=== PATIENT | female | born 1960 | race African-American/Black ===

== ENCOUNTER 2016-07-01 20:40 | Emergency (ER) | payer OTHER ==
[~2016-07-01] VITALS: Ht 162.6 cm; Wt 76.7 kg
[2016-07-01 22:53] VITALS: BP 135/79; TEMP 98.4
== END 2016-07-01 22:57 | disposition home or self-care (01) ==
LOC: ED 20:40
DX: S00.93XA Contusion of unspecified part of head, initial encounter (principal); S16.1XXA Strain of muscle, fascia and tendon at neck level, initial encounter; M47.892 Other spondylosis, cervical region; S00.01XA Abrasion of scalp, initial encounter; W01.198A Fall on same level from slipping, tripping and stumbling with subsequent striking against other object, initial encounter; Y92.098 Other place in other non-institutional residence as the place of occurrence of the external cause
CPT/HCPCS: 99283

== ENCOUNTER 2023-06-23 19:28 | Emergency (ER) | payer OTHER ==
[~2023-06-23] VITALS: Ht 152.4 cm; Wt 86.2 kg
[2023-06-23 19:35] VITALS: TEMP 98.7
[2023-06-23] MEDS ORDERED: Ondansetron HCl 4 MG INJ IM ONE (19:59)
[2023-06-23] MEDS ORDERED: TORADOL 30MG/ML INJ IM ONE (20:00)
[2023-06-23] MEDS ORDERED: DEXAMETHASONE SODIUM PHOSPHATE 4 MG INJ IM ONE (20:00)
[2023-06-23] MEDS ORDERED: DEXAMETHASONE SODIUM PHOSPHATE 4 MG INJ ONE (20:02)
[2023-06-23] MEDS ORDERED: TORADOL 60MG/2ML INJ IM ONE ×2 (20:02→20:07)
[2023-06-23 21:40] VITALS: BP 128/65
== END 2023-06-23 21:52 | disposition home or self-care (01) ==
LOC: ED 19:28
DX: M79.604 Pain in right leg (principal); M19.90 Unspecified osteoarthritis, unspecified site; M79.18 Myalgia, other site
CPT/HCPCS: 96372; 99283; J1100; J1885; J2405